=== PATIENT | male | born 1945 | race Caucasian/White ===

== ENCOUNTER 2018-07-06 21:58 | Emergency (ER) | payer MEDICARE ==
[~2018-07-06] VITALS: Ht 180.3 cm; Wt 72.6 kg
[2018-07-06] MEDS ORDERED: ACETAMINOPHEN ES 500 MG TABLET PO ONE (23:00)
[2018-07-06] MEDS ORDERED: ACETAMINOPHEN ES 500 MG TABLET ONE (23:00)
[2018-07-07 00:53] VITALS: BP 129/89
== END 2018-07-07 00:54 | disposition home or self-care (01) ==
LOC: ER 22:04
DX: S52.572A Other intraarticular fracture of lower end of left radius, initial encounter for closed fracture (principal); S39.012A Strain of muscle, fascia and tendon of lower back, initial encounter; S60.222A Contusion of left hand, initial encounter; W18.09XA Striking against other object with subsequent fall, initial encounter; Y93.89 Activity, other specified; Y92.410 Unspecified street and highway as the place of occurrence of the external cause; Y99.8 Other external cause status
CPT/HCPCS: 29125; 72110; 73110; 73130; 99283; A4606

== ENCOUNTER 2025-02-19 02:50 | Emergency (ER) | payer MEDICARE ==
[~2025-02-19] VITALS: Ht 167.6 cm; Wt 69.9 kg
[2025-02-19] MEDS ORDERED: IBUP-1490 PO ×2 (05:46→09:10)
[2025-02-19] MEDS ORDERED: HYDR-4303 PO (09:10)
[2025-02-19 11:03] VITALS: BP 129/81; TEMP 98.6; O2SAT 97
== END 2025-02-19 11:04 | disposition home or self-care (01) ==
LOC: ER 02:54
DX: S52.601A Unspecified fracture of lower end of right ulna, initial encounter for closed fracture (principal); S50.01XA Contusion of right elbow, initial encounter; S50.811A Abrasion of right forearm, initial encounter; S20.219A Contusion of unspecified front wall of thorax, initial encounter; Z98.890 Other specified postprocedural states; V89.2XXA Person injured in unspecified motor-vehicle accident, traffic, initial encounter; Y93.89 Activity, other specified; Y92.410 Unspecified street and highway as the place of occurrence of the external cause; Y99.9 Unspecified external cause status
CPT/HCPCS: 29125; 71100; 73080; 73090; 99284; J7030